=== PATIENT | male | born 1970 | race Caucasian/White ===

== ENCOUNTER → 2020-10-22 | Outpatient (CLI) | payer OTHER ==
[~2020-10-22] VITALS: Ht 177.8 cm; Wt 158.8 kg
== END ==
LOC: OPSV 07:00
DX: G35 Multiple sclerosis (principal); K59.09 Other constipation; F17.210 Nicotine dependence, cigarettes, uncomplicated
CPT/HCPCS: 96375; 96413; 96415; J2350; J2405; J2930; J7030

== ENCOUNTER → 2021-10-21 | Outpatient (CLI) | payer OTHER ==
[~2021-10-21] VITALS: Ht 177.8 cm; Wt 158.8 kg
== END ==
LOC: OPSV 08:00
DX: G35 Multiple sclerosis (principal)
CPT/HCPCS: 96375; 96413; 96415; J2350; J2930; J7030